=== PATIENT | male | born 1990 | race African-American/Black ===

== ENCOUNTER 2018-11-21 16:43 | Emergency (ER) | payer OTHER ==
[~2018-11-21] VITALS: Ht 190.5 cm; Wt 77.0 kg
[2018-11-21 16:46] VITALS: BP 120/83
[2018-11-21] MEDS ORDERED: IBUPROFEN 200 MG TABLET PO ONE (17:00)
[2018-11-21] MEDS ORDERED: IBUPROFEN 200 MG TABLET ONE (17:07)
--- NOTE | 2018-11-21 17:46 | NUR ---
Patient/Caregiver given discharge instructions and they have confirmed that they understand the instructions. Patient ambulatory with steady gait.
== END 2018-11-21 17:47 | disposition home or self-care (01) ==
LOC: ED 17:40
DX: S60.812A Abrasion of left wrist, initial encounter (principal); M54.6 Pain in thoracic spine; Y04.8XXA Assault by other bodily force, initial encounter; Y93.89 Activity, other specified; Y92.89 Other specified places as the place of occurrence of the external cause; Y99.8 Other external cause status
CPT/HCPCS: 72072; 99283

== ENCOUNTER 2018-11-29 04:08 | Emergency (ER) | payer OTHER ==
[~2018-11-29] VITALS: Ht 190.5 cm; Wt 81.0 kg
[2018-11-29 04:11] VITALS: BP 130/80
--- NOTE | 2018-11-29 04:19 | NUR ---
assessment made. chart up for MD to see.
--- NOTE | 2018-11-29 04:32 | NUR ---
PA at bedside.
== END 2018-11-29 04:57 | disposition home or self-care (01) ==
LOC: ED 04:55
DX: M25.532 Pain in left wrist (principal)
CPT/HCPCS: 29260; 99283